=== PATIENT | female | born 1960 | race American Indian/Alaskan Native ===

== ENCOUNTER 2017-08-27 09:45 | Outpatient (CLI) | payer MEDICARE ==
--- NOTE | 2017-08-27 11:09 | Ultrasound Report ---
BILATERAL DIGITAL DIAGNOSTIC MAMMOGRAM with CAD and BILATERAL BREAST ULTRASOUND: 08/27/17 09:30:00 CLINICAL: Bilateral breast lumps. COMPARISON:10/14/15 FINDINGS: The breasts are mostly fatty with a few bilateral scattered fibroglandular densities.No mass, architectural distortion or suspicious calcifications . No mammographic abnormality at 2 palpable markers in the upper right breast and three palpable markers in the upper left breast. Ultrasound of both breasts was performed in the area of palpable markers. Right breast ultrasound was performed from 9 o'clock to 3 o'clock in the left breast ultrasound was performed 9 o'clock to 3 o'clock and demonstrated normal fibroglandular structures. No mass, cyst or shadowing. IMPRESSION: Negative mammogram and negative bilateral breast ultrasound. BI-RADS CATEGORY: 1 - - Negative RECOMMENDATION: Clinical follow-up and routine mammographic screening in one year. ACR BI-RADS MAMMOGRAPHIC CODES: 0 = Needs additional imaging evaluation; 1 = Negative; 2 = Benign; 3 = Probably benign; 4 = Suspicious; 5 = Malignant; 6 = Known biopsy-proven malignancy COMMENT: 1. Dense breast tissue, i.e., adenosis, fibrocystic changes, etc., may obscure an underlying neoplasm. 2. Approximately 10% of cancers are not detected with mammography. 3. A negative mammography report should not delay biopsy if a clinically suspicious mass is present. COMMENT: Patient follow-up letters are generated by our [employer] application.
== END 2017-08-27 09:46 | disposition home or self-care (01) ==
LOC: SPVWC 09:45
PROVIDERS: ATTEND Internal Medicine
DX: N63.20 Unspecified lump in the left breast, unspecified quadrant (principal); N63.10 Unspecified lump in the right breast, unspecified quadrant
CPT/HCPCS: 77066

== ENCOUNTER 2018-09-08 16:30 | Outpatient (CLI) | payer MEDICARE ==
[2018-09-08 17:26] LABS: Basophils % (Auto) 0.4 % (0.0-1.8); Eosinophils # (Auto) 0.1 K/mm3 (0.0-0.4); Eosinophils % (Auto) 2.6 % (0.0-4.3); Hematocrit 37.4 % (30.3-42.9); Hemoglobin 12.7 gm/dl (10.1-14.3); Lymphocytes # (Auto) 2.1 K/mm3 (1.2-5.4); Lymphocytes % (Auto) 40.5 % (13.4-35.0); Mean Corpuscular HGB Conc 34 % (30-34); Mean Corpuscular Volume 88 fl (79-97); Monocytes # (Auto) 0.3 K/mm3 (0.0-0.8); Monocytes % (Auto) 6.5 % (0.0-7.3); Platelet Count 277 K/mm3 (140-440); Red Blood Count 4.27 M/mm3 (3.65-5.03); Red Cell Distribution Width 14.6 % (13.2-15.2)
[2018-09-08 17:45] LABS: Alanine Aminotransferase 7 units/L (7-56); Albumin 4.1 g/dL (3.9-5); BUN/Creatinine Ratio 13; Blood Urea Nitrogen 13 mg/dL (7-17); Calcium 8.8 mg/dL (8.4-10.2); Hemolysis Index 3
== END 2018-09-08 16:31 | disposition home or self-care (01) ==
LOC: BAR 16:30
PROVIDERS: ATTEND Surgery
DX: D50.9 Iron deficiency anemia, unspecified (principal); E61.8 Deficiency of other specified nutrient elements; E11.9 Type 2 diabetes mellitus without complications; K30 Functional dyspepsia
CPT/HCPCS: 36415; 80053; 83036; 84443; 85025

== ENCOUNTER 2018-09-10 15:10 | Outpatient (CLI) | payer MEDICARE ==
--- NOTE | 2018-09-10 16:07 | Mammography Report ---
BILATERAL DIGITAL SCREENING MAMMOGRAM with CAD: 09/10/18 15:10:00 CLINICAL: Routine screening. COMPARISON: 08/27/17 FINDINGS: There are bilateral scattered areas of fibroglandular density.No mass, architectural distortion or suspicious calcifications. IMPRESSION: No mammographic evidence of malignancy. BI-RADS CATEGORY: 1 -- Negative RECOMMENDATION: Routine mammographic screening in one year. COMMENT: Patient follow-up letters are generated by our [employer] application.
== END 2018-09-10 15:11 | disposition home or self-care (01) ==
LOC: SPVWC 15:10
PROVIDERS: ATTEND Internal Medicine
DX: Z12.31 Encounter for screening mammogram for malignant neoplasm of breast (principal)
CPT/HCPCS: 77067

== ENCOUNTER 2019-03-16 13:07 | Outpatient (CLI) | payer MEDICARE ==
--- NOTE | 2019-03-16 14:40 | Ultrasound Report ---
BILATERAL BREAST ULTRASOUND HISTORY: Bilateral breast lumps. COMPARISON: 08/27/2017 bilateral breast ultrasound and 09/10/2018 screening mammogram FINDINGS: Sonographic evaluation of the right breast was performed in all 4 quadrants and the retroa reolar area and demonstrated no distinct abnormality. Normal fibroglandular structures. No mass, cyst or shadowing. Ultrasound of the right axilla demonstrated no abnormal lymph nodes. Sonographic evaluation of the left breast was performed and all 4 quadrants and the retroareolar area and demonstrated no distinct abnormality. Normal fiber glandular structures. No mass, cyst or shadow ing. Ultrasound of the left axilla demonstrated no abnormal lymph nodes. IMPRESSION: Negative bilateral breast ultrasound. Recommend clinical follow-up and routine mammographic screening . If the clinical examination remains stable, recommend bilateral annual screening mammographic evaluat ion. BIRADS 1: Negative. Signer Name: Reno Monae MD Signed: 03/16/2019 2:35 PM Workstation Name: [id number]
== END 2019-03-16 13:08 | disposition home or self-care (01) ==
LOC: SPVWC 13:07
PROVIDERS: ATTEND Pediatrics
DX: N63.10 Unspecified lump in the right breast, unspecified quadrant (principal); N63.20 Unspecified lump in the left breast, unspecified quadrant

== ENCOUNTER 2019-09-24 14:00 | Outpatient (CLI) | payer MEDICARE ==
--- NOTE | 2019-09-24 15:39 | Mammography Report ---
DIGITAL SCREENING MAMMOGRAM WITH CAD, 09/24/2019 INDICATION: Routine screening mammography. TECHNIQUE: Digital bilateral 2D mammography was obtained in the craniocaudal and mediolateral obliq ue projections. This examination was interpreted with the benefit of Computer-Aided Detection analysi s. COMPARISON: 08/27/2017. FINDINGS: Breast Density: There are scattered areas of fibroglandular density. There is no evidence of dominant mass, suspicious calcifications or architectural distortion in eithe r breast. IMPRESSION: Follow up recommendation: Routine yearly BI-RADS Category 1: Negative. A "normal" or negative report should not discourage follow up or biopsy of a clinically significant f inding. A written summary of these findings will be mailed to the patient. The patient will be entered into a mammography reporting system which will generate a reminder letter for the patient's next appointmen t at the appropriate interval. The [employer] recommends yearly mammograms starting at age 40 and continuing as l natalie as a woman is in good health. Breast MRI is recommended for women with an approximate 20-25% or greater lifetime risk of breast cancer, including women with a strong family history of breast or ova geena cancer or who have been treated for Hodgkin's disease. A written summary of these findings will be mailed to the patient. The patient will be entered into a mammography reporting system which will generate a reminder letter for the patient's next appointmen t at the appropriate interval. The [employer] recommends yearly mammograms starting at age 40 and continuing as l natalie as a woman is in good health. Breast MRI is recommended for women with an approximate 20-25% or greater lifetime risk of breast cancer, including women with a strong family history of breast or ova geena cancer or who have been treated for Hodgkin's disease. Signer Name: Michele Carlson MD Signed: 09/24/2019 3:35 PM Workstation Name: [id number]
== END 2019-09-24 14:01 | disposition home or self-care (01) ==
LOC: SPVWC 14:00
PROVIDERS: ATTEND Pediatrics
DX: Z12.31 Encounter for screening mammogram for malignant neoplasm of breast (principal); N64.89 Other specified disorders of breast
CPT/HCPCS: 77067

== ENCOUNTER 2019-09-30 14:21 | Outpatient (CLI) | payer MEDICARE ==
--- NOTE | 2019-09-30 16:51 | Ultrasound Report ---
US abdomen complete INDICATION / CLINICAL INFORMATION: RIGHT UPPER QUADRANT PAIN. COMPARISON: None available. FINDINGS: Liver appears unremarkable. No mass or biliary dilatation. Echogenicity of the liver is normal. Gallb ladder is unremarkable. Common duct is normal in size. Kidneys, abdominal aorta and IVC are negative. Spleen and pancreas are grossly unremarkable but not optimally imaged. IMPRESSION: 1. No significant abnormality identified. Signer Name: Ronnie Meadows MD Signed: 09/30/2019 4:47 PM Workstation Name: [id number]
== END 2019-09-30 14:22 | disposition home or self-care (01) ==
LOC: SPVWC 14:21
DX: R10.11 Right upper quadrant pain (principal)
CPT/HCPCS: 76700

== ENCOUNTER 2020-09-26 13:08 | Outpatient (CLI) | payer MEDICARE ==
--- NOTE | 2020-09-26 16:29 | Mammography Report ---
DIGITAL SCREENING MAMMOGRAM WITH CAD, 09/26/2020 CLINICAL INFORMATION / INDICATION: Routine screening TECHNIQUE: Digital bilateral 2D mammography was obtained in the craniocaudal and mediolateral obliqu e projections. This examination was interpreted with the benefit of Computer-Aided Detection analysis . COMPARISON: 09/24/2019 FINDINGS: Breast Density: There are scattered areas of fibroglandular density. No dominant mass, suspicious calcifications, or architectural distortion in either breast. IMPRESSION: No mammographic evidence of malignancy. Follow up recommendation: Routine yearly BI-RADS Category 1: Negative. A "normal" or negative report should not discourage follow up or biopsy of a clinically significant f inding. A written summary of these findings will be mailed to the patient. The patient will be entered into a mammography reporting system which will generate a reminder letter for the patient's next appointmen t at the appropriate interval. The [employer] recommends yearly mammograms starting at age 40 and continuing as l natalie as a woman is in good health. Breast MRI is recommended for women with an approximate 20-25% or greater lifetime risk of breast cancer, including women with a strong family history of breast or ova geena cancer or who have been treated for Hodgkin's disease. Signer Name: Rios Cam MD Signed: 09/26/2020 4:25 PM Workstation Name: [id number]
== END 2020-09-26 13:09 | disposition home or self-care (01) ==
LOC: SPVWC 13:08
PROVIDERS: ATTEND Pediatrics
DX: Z12.31 Encounter for screening mammogram for malignant neoplasm of breast (principal); N64.89 Other specified disorders of breast
CPT/HCPCS: 77067

== ENCOUNTER 2021-10-26 14:49 | Outpatient (CLI) | payer MEDICARE ==
--- NOTE | 2021-10-26 16:50 | Mammography Report ---
DIGITAL SCREENING MAMMOGRAM WITH CAD, 10/26/2021 CLINICAL INFORMATION / INDICATION: Routine screening mammography. Z12.31 TECHNIQUE: Digital bilateral 2D mammography was obtained in the craniocaudal and mediolateral obliqu e projections. This examination was interpreted with the benefit of Computer-Aided Detection analysis . COMPARISON: 09/26/2020, 09/24/2019 FINDINGS: Breast Density: There are scattered areas of fibroglandular density. No dominant mass, suspicious calcifications, or architectural distortion in either breast. There has been no significant interval change. IMPRESSION: No mammographic evidence of malignancy. Follow up recommendation: Routine yearly screening mammogram. BI-RADS Category 1: NEGATIVE A "normal" or negative report should not discourage follow up or biopsy of a clinically significant f inding. A written summary of these findings will be mailed to the patient. The patient will be entered into a mammography reporting system which will generate a reminder letter for the patient's next appointmen t at the appropriate interval. The [employer] recommends yearly mammograms starting at age 40 and continuing as l natalie as a woman is in good health. Breast MRI is recommended for women with an approximate 20-25% or greater lifetime risk of breast cancer, including women with a strong family history of breast or ova geena cancer or who have been treated for Hodgkin's disease. Signer Name: Minh Yadav MD Signed: 10/26/2021 4:46 PM Workstation Name: [id number]
== END 2021-10-26 14:50 | disposition home or self-care (01) ==
LOC: MAMMO 14:49
PROVIDERS: ATTEND Pediatrics
DX: Z12.31 Encounter for screening mammogram for malignant neoplasm of breast (principal)
CPT/HCPCS: 77067